=== PATIENT | female | born 1945 | race Hispanic/Latino ===

== ENCOUNTER → 2017-10-15 | Outpatient (CLI) | payer MEDICARE ==
[2017-10-15 10:40] LABS: Blood Urea Nitrogen 14 mg/dL (7-17)
--- NOTE | 2017-10-16 09:11 | Magnetic Resonance Report ---
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 TECHNIQUE: Axial T2 and T2 gradient. Sagittal T1, T2 and STIR. Post contrast T1 fat-sat imaging in axial and sagittal planes. COMPARISON: No recent comparison. FINDINGS: The cervical spinal cord is normal size and signal intensity throughout. No abnormal intramedullary signal is detected. Normal height and alignment of the cervical vertebral bodies. Normal bone marrow signal. Mild diffuse disc desiccation with mild narrowing at C5-6 is noted. The facet joints are in appropriate relationship. No significant joint pathology or hypertrophic changes. The paraspinal soft tissues are within normal limits. No abnormal enhancement is demonstrated following IV gadolinium to suggest metastatic disease. C2-3: No significant abnormality. C3-4: A small right paracentral disc protrusion is identified which effaces the anterior thecal sac. No canal narrowing. C4-5: A moderate right paracentral to right lateral disc protrusion is identified which extends into the right neural foramen. This results in moderate to severe right neural foraminal narrowing estimated at 75%. C5-6: Mild bilateral uncovertebral spurring is identified. Bilateral neural foraminal narrowing is estimated at 50%. C6-7: No significant abnormality. C7-T1: No significant abnormality. IMPRESSION: Mild multilevel cervical spondylosis as described above. Moderate disc protrusion at C4-5. No evidence for fracture, malalignment or metastatic disease.
--- NOTE | 2017-10-16 09:16 | Magnetic Resonance Report ---
MRI UPPER EXTREMITY JOINT RIGHT WITH AND WITHOUT CONTRAST HISTORY: Right shoulder pain, breast cancer, tonsillar cancer. TECHNIQUE: Multisequence, multiplanar MRI with and without IV gadolinium was performed through the right shoulder. COMPARISON: None. FINDINGS: The bone marrow signal within the visualized right shoulder is within normal limits. No evidence for fracture, dislocation or enhancing bone lesion. Mild osteoarthritic changes are identified at the acromioclavicular joint and glenohumeral joint. A focal intrasubstance tear is identified in the distal infraspinatus tendon at its insertion site on the proximal humerus. This is best demonstrated on the coronal T1 fat sat contrast image 10. The supraspinatus, subscapularis, teres minor and long head of the biceps tendon are intact. The labrum is grossly intact although arthrogram was not performed. Trace joint effusion is noted. The remaining soft tissues are within normal limits. No abnormal enhancement following IV gadolinium is detected. IMPRESSION: Focal intrasubstance tear of the distal infraspinatus tendon. Mild osteoarthritis. Trace joint effusion.
== END | disposition home or self-care (01) ==
LOC: MRI 10:01
PROVIDERS: ATTEND Internal Medicine Hematology & Oncology
DX: C50.119 Malignant neoplasm of central portion of unspecified female breast (principal); C09.9 Malignant neoplasm of tonsil, unspecified; M19.011 Primary osteoarthritis, right shoulder; M47.892 Other spondylosis, cervical region; M50.221 Other cervical disc displacement at C4-C5 level
CPT/HCPCS: 36415; 72156; 73223; 82565; 84520; A9577

== ENCOUNTER 2020-02-06 09:26 | Outpatient (CLI) | payer MEDICARE ==
--- NOTE | 2020-02-06 10:38 | Mammography Report ---
DIGITAL DIAGNOSTIC MAMMOGRAM WITH CAD , 02/06/2020 CLINICAL INFORMATION / INDICATION: Routine screening mammography. The patient has a personal history of left breast cancer treated with mastectomy. She reports no new symptoms. TECHNIQUE: Digital right mammographic imaging was performed. This examination was interpreted with the benefit of Computer-aided Detection analysis. COMPARISON: 01/31/2019, 01/25/2018, 01/19/2017 FINDINGS: Breast Density: The breasts are heterogeneously dense, which may obscure small masses. No dominant mass, suspicious calcifications or architectural distortion in the right breast. Postsurgical changes in the subareolar region are again noted. IMPRESSION: No mammographic evidence of malignancy. Follow up recommendation: Routine yearly BI-RADS Category 2: Benign. A "normal" or negative report should not discourage follow up or biopsy of a clinically significant f inding. A written summary of these findings will be mailed to the patient. The patient will be entered into a mammography reporting system which will generate a reminder letter for the patient's next appointmen t at the appropriate interval. According to the [employer], yearly mammograms are recommended starting at age 40 and continuing as long as a woman is in good health. Breast MRI is recommended for women with an omayra roximately 20-25% or greater lifetime risk of breast cancer, including women with a strong family his tory of breast or ovarian cancer and women who have been treated for Hodgkin's disease. Signer Name: Eliana Butt MD Signed: 02/06/2020 10:33 AM Workstation Name: [id number]
== END 2020-02-06 09:27 | disposition home or self-care (01) ==
LOC: SPVWC 09:26
PROVIDERS: ATTEND Surgery
DX: Z12.31 Encounter for screening mammogram for malignant neoplasm of breast (principal); N64.89 Other specified disorders of breast